=== PATIENT | male | born 1990 | race Caucasian/White ===

== ENCOUNTER 2018-06-23 19:37 | Emergency (ER) | END 2018-06-23 21:33 | disposition home or self-care (01) ==

== ENCOUNTER 2019-02-10 11:12 | Day surgery (SDC) | payer OTHER ==
[~2019-02-10] VITALS: Ht 182.9 cm; Wt 128.0 kg
[2019-02-10] VITALS (11 sets, daily range): BP systolic 111–137; BP diastolic 61–79; PULSE 60–74; RESP 15–20; Ht 182.9 cm; Wt 128.0 kg
[~2019-02-10 11:12] MED LIST: ACET500C5 PO; CEFAZOLIN 2 GM/50 ML (PMX) 50 ML IVPB SCH; CYCL10TA7 PO; SOD CHLORIDE 0.9% 1,000 ML IV ONE
[2019-02-10] MEDS ORDERED: ERGO500013 PO (11:48)
--- NOTE | 2019-02-10 12:01 | PREAC ---
Date/Time of Note Date/Time of Note DATE: 02/10/19 TIME: 12:00 Anesthesia Eval and Record Evaluation Time Pre-Procedure Interview DATE: 02/10/19 TIME: 12:00 Age 28 Sex male NPO: 8 hrs Preoperative diagnosis Left breast mass Planned procedure Excision of mass Past Medical History Past Medical History: Includes Cardio: Dyslipidemia Surgery & Anesthesia Issues No known issue Meds Anticoagulation: No Beta Shimon within 24 hr: No Reason Beta Shimon not given: Pt. not on B-Shimon Reported Medications Ergocalciferol (Vitamin D2) (VITAMIN D2) 50,000 Unit Capsule, 35895 UNIT PO WEEKLY, CAP 02/10/19 Discontinued Scripts Cyclobenzaprine Hcl* (Cyclobenzaprine Hcl*) 10 Mg Tablet, 10 MG PO QHS, #7 TAB Prov:RACHAEL MAURO PA-C 06/23/18 Acetaminophen* (Tylophen*) 500 Mg Capsule, 1 CAP PO Q6H PRN for PAIN AND OR ELEVATED TEMP, #30 CAP Prov:RACHAEL MAURO PA-C 06/23/18 Current Medications Cefazolin Sodium/ Dextrose 50 ml @ 100 mls/hr PRE-OP IVPB ; Start 02/10/19 at 06:00; Stop 02/10/19 at 15:00 Sodium Chloride 1,000 ml @ 75 mls/hr [id number] ONCE IV ; Start 02/10/19 at 06:00; Stop 02/10/19 at 19:19 Meds reviewed: Yes Allergies Coded Allergies: No Known Allergy (Unverified , 02/10/19) Allergies Reviewed: Yes Labs/Studies Labs Reviewed: Reviewed by anesthesiologist test: N/A Pre-procedure Exam Airway: Adequate mouth opening Mallampati: Mallampati II Teeth: Normal Lung: Normal Heart: Normal ASA Physical Status ASA physical status: 2 Emergency: None Planned Anesthetic General/MAC: LMA Planned Pain Management Parenteral pain med Pre-operative Attestations Prior to commencing anesthesia and surgery, the patient was re-evaluated, there was verification of: *The patient's identity *The results of appropriate recent lab work and preoperative vital signs *The above evaluation not changing prior to induction *Anesthetic plan, risk benefits, alternative and complications discussed with patient/family; questions answered; patient/family understands, accepts and wishes to proceed. JEANNETTE HAIR MD Feb 10, 2019 12:01
[2019-02-10] MEDS ORDERED: BUPIVACAINE 0.5%/EPI (SDV) 30 ML INJ ONE (12:24)
[2019-02-10] MEDS ORDERED: LIDOCAINE 2% (SDV) 5 ML INJ ONE (12:51)
[2019-02-10] MEDS ORDERED: PROPOFOL 20 ML ONE (12:51)
[2019-02-10] MEDS ORDERED: CEFAZOLIN 1 GM INJ ONE (12:51)
[2019-02-10] MEDS ORDERED: METOCLOPRAMIDE 10 MG INJ IV PRN (13:00)
[2019-02-10] MEDS ORDERED: DIPHENHYDRAMINE 50 MG INJ IV PRN (13:00)
[2019-02-10] MEDS ORDERED: hydrALAzine 20 MG INJ IV PRN (13:00)
[2019-02-10] MEDS ORDERED: ONDANSETRON 4 MG INJ IV PRN ×2 (13:00→13:30)
[2019-02-10] MEDS ORDERED: EPHEDrine SULFATE 50 MG/5 ML SYG IV PRN (13:00)
[2019-02-10] MEDS ORDERED: HYDROmorphONE 1 MG/5 ML IV SYRINGE IV PRN ×3 (13:00)
[2019-02-10] MEDS ORDERED: OXYCODONE/ACETAMINOPHEN (5/325) TAB PO PRN ×2 (13:00)
[2019-02-10] MEDS ORDERED: MEPERIDINE 25 MG INJ IV PRN (13:00)
[2019-02-10] MEDS ORDERED: LABETALOL HCL 20MG INJ IV PRN (13:00)
[2019-02-10] MEDS ORDERED: FENTAnyl 50 MCG/ML VIAL IV PRN ×3 (13:00)
[2019-02-10] MEDS ORDERED: MIDAZOLAM 1 MG/ML 2 ML INJ IV PRN (13:00)
[2019-02-10] MEDS ORDERED: IBUPROFEN 600 MG TAB PO PRN (13:30)
[2019-02-10] MEDS ORDERED: KETOROLAC 30 MG INJ IV PRN (13:30)
--- NOTE | 2019-02-10 13:35 | OPR ---
Date/Time of Note Date/Time of Note DATE: 02/10/19 TIME: 13:30 Operative Report Procedure Date: Feb 10, 2019 Preoperative Diagnosis Left breast mass Postoperative Diagnosis Left breast mass Operation/Procedure Performed Excision of left breast mass Surgeon see signature line Gi Technician None Anesthesia Type: general Anesthesiologist: JEANNETTE HAIR MD Estimated Blood Loss: minimal Transfusion none Specimen Left breast mass Grafts/Implants none Complications none Pt Condition Post Procedure: stable Disposition: PACU Indications Patient is a obese 28-year-old male presented to the office complaining of a mass in the area of the left breast. He stated that this had been present for the past 9 years. He reported growth and increasing pain and discomfort. The patient was scheduled for elective excision for symptom relief and definitive pathological diagnosis. All risks and benefits of the procedure including, but not limited to: Wound infection, excessive bleeding, postoperative seroma/hematoma formation, mass recurrence, etc. were all explained to the patient in full detail. The patient fully understood and wished to proceed with the procedure. Informed consent was obtained. Procedure Description The patient was brought to the operating room and placed supine on the operating table. Bilateral sequential compression devices were placed on both lower extremities. A dose of broad-spectrum perioperative intravenous antibiotics was given. After the induction of smooth general anesthesia the patient's left breast was prepped and draped in standard surgical fashion. The left breast mass which was located at approximately the 3:00 location of the left breast near the areolar border was preoperatively marked and confirmed with the patient in the holding area. After performance of the surgical timeout, 0.5% Marcaine with epinephrine was injected in a radial fashion around the mass creating a field block. An incision was then made over the mass using a 15 blade scalpel. Incision was carried down through the skin and into the dermis using sharp dissection. In the dermis and extending into the subcutaneous tissues a large mass was identified. It appeared consistent with an epidermal inclusion cyst. Blunt dissection was then performed circumferentially around the mass freeing it from the surrounding tissues and delivering it into the field. Once dissected free of surrounding tissues the mass was transected at its base and passed off the field as specimen. It measured approximately 4 cm in maximal dimension. Hemostasis was then inspected for and noted to be total. The wound cavity was then irrigated with warm saline and the irrigant returned clear. Further local anesthesia was then injected around the skin of the incision site. Incision was then closed in layers using interrupted 3-0 Vicryl sutures for the dermal layer and a running subcuticular 4-0 Monocryl suture for the skin. Incision was then cleaned and Dermabond was applied. The patient was then awoken from anesthesia and transferred to the recovery room in stable condition. All counts were correct at the end of the case x2 TOYIN HERNANDEZ MD Feb 10, 2019 13:35
--- NOTE | 2019-02-10 14:43 | PAC ---
Date/Time of Note Date/Time of Note DATE: 02/10/19 TIME: 14:42 Post-Anesthesia Notes Post-Anesthesia Note Last documented vital signs Vital Signs Date Temp Pulse Resp B/P (MAP) Pulse Ox O2 O2 Flow FiO2 Time Delivery Rate 02/10/19 98.0 66 19 122/66 95 Room Air 14:20 (84) Activity: WNL Respiratory function: WNL Cardiovascular function: WNL Mental status: Baseline Pain reasonably controlled: Yes Hydration appropriate: Yes Nausea/Vomiting absent: Yes JEANNETTE HAIR MD Feb 10, 2019 14:43
== END 2019-02-10 15:30 | disposition home or self-care (01) ==
LOC: SDS 11:12
PROVIDERS: ATTEND Surgery
DX: N60.02 Solitary cyst of left breast (principal)
CPT/HCPCS: 19120; 88307; J0690; Z7512; Z7610